=== PATIENT | male | born 1980 | race Caucasian/White ===

== ENCOUNTER 2020-03-09 10:54 | Day surgery (SDC) | payer BC, OTHER ==
[~2020-03-09] VITALS: Ht 188 cm; Wt 108.9 kg
[~2020-03-09 10:54] MED LIST: ADVIL200 M3 PO; ASA81BEC PO; LIPITOR10 MG PO; VENTOLIN HFA INH8 GM INH
[2020-03-09 12:02] VITALS: BP 115/73
[2020-03-09] MEDS ORDERED: NORCO 5-325 TA1 EAC1 PO (14:30)
[2020-03-09 14:38] VITALS: BP 115/73
--- NOTE | 2020-03-12 17:07 | PATH ---
[facility] [address] [place] [address] PATHOLOGY RPT PROCEDURE Name: KIMBERLY HYATT Room #: [place] [facility] [place].#: [id number] Admission: 03/09/20 Date of : 82 Discharge: 03/09/20 Report #: [id number] Path Case #: [id number] [facility] Accession Number: [id number] . 01 Material submitted: . PART A: scrotum - SCROTAL MASS 1.5CM PART B: face - RIGHT FACE-CHEEK MASS 1.0CM. Modifiers: right . 01 Clinical history: . Excision facial skin ca . 02 Diagnosis: A. Scrotal mass 1.5 cm, excision: - Mature keratinous cyst. - Cholesterol clefts along with reparative giant cell reaction, compatible with reaction to ruptured cyst. - Completely excised. . B. Right face/cheek mass, excision: - Mature keratinous cyst. - Completely excised. (IUV/db; 03/12/2020) LBQ 03/12/2020 1513 Local . 02 Electronically signed: . Dia Hernandez MD, Pathologist NPI- [id number] . 01 Gross description: . A. Received in formalin labeled "Kimberly Hyatt, scrotal mass 1.5 cm" is an intact cooper-white cystic structure measuring 1.4 x 1.3 x 0.8 cm. The external surface is inked entirely black. The specimen is sectioned to reveal that the cyst contains cooper-yellow grumous material. The specimen is entirely submitted in A1. . B. Received in formalin labeled "Kimberly Hyatt, right face/right cheek mass" is an intact cooper-white cystic structure with attached skin, measuring 1.5 x 1.2 x 1.0 cm. The skin measures 1.6 x 0.5 x 0.2 cm. The external surface is inked entirely black. The specimen is sectioned to reveal that the cyst contains cooper-white grumous material. The specimen is entirely submitted in B1. ([facility] [place]; 03/10/2020) [facility] 03/10/2020 1016 Local . 02 Pathologist provided ICD-10: L72.9, L72.0 . 02 [place] [address] PATHOLOGY RPT PROCEDURE Name: KIMBERLY HYATT Room #: [place] [facility] [place].R.#: [id number] Admission: 03/09/20 Date of : 82 Discharge: 03/09/20 Report #: [id number] Path Case #: [id number] Specimen Comment: A courtesy copy of this report has been sent to [phone] Specimen Comment: [phone] Specimen Comment: Report sent to / DR DEL CASTILLO Performed at: [address], [place], [place] [id number] MD Obdulio Villa MD Phone: [phone] Performed at: [address] [facility] [id number] MD Dia Hernandez MD Phone: [phone]
--- NOTE | 2020-03-21 08:43 | O ---
[facility] [place] [address] OPERATIVE REPORT Name: KIMBERLY SHEFFIELD Room #: DEP [facility]..#: [id number] Admission: 03/09/20 Attend Phys: Heriberto Estes MD Discharge: 03/09/20 Date of : 82 Report #: [id number] THIS REPORT FOR: cc: AVNI DEL CASTILLO MD, AVNI Estes,Heriberto Bertrand MD ~ CC: AVNI Estes DATE OF SERVICE: 03/09/[address] Avni Del Castillo. PREOPERATIVE DIAGNOSES: Right scrotal mass measuring 1.5 cm and a right cheek mass measuring 1.2 cm. POSTOPERATIVE DIAGNOSES: Right scrotal mass measuring 1.5 cm and a right cheek mass measuring 1.2 cm. PROCEDURE: Excision of a right scrotal mass measuring 1.5 cm and a right cheek lesion measuring 1.2 cm. SURGEON: Heriberto Estes MD ANESTHESIA: Local IV sedation. DESCRIPTION OF PROCEDURE: The patient was brought to the operating room and placed on operative table in the supine position. The scrotum was then prepped and draped in a sterile fashion. Skin and subcutaneous tissue were then infiltrated with 1% Xylocaine plain and 0.5% Marcaine plain. A skin incision was performed over the scrotal mass using #15 scalpel blade. Hemostasis obtained using electrocautery. Dissection was carried down through subcutaneous tissue to this mass, which was identified, dissected free, excised and sent to pathology. The meticulous hemostasis was obtained in the area using the electrocautery. Skin was then closed with 2 interrupted horizontal mattress 4-0 subcuticular sutures and then dressed with Dermabond. Attention was then turned to the right cheek lesion. That area was prepped and draped in a sterile fashion. Once again, skin and subcutaneous tissue around this mass was infiltrated with 0.5% Marcaine and 1% Xylocaine with epinephrine. Elliptical skin incision was performed over the mass using #15 scalpel blade. Hemostasis obtained using electrocautery. Dissection was carried down through subcutaneous tissue around this mass using the Metzenbaum scissors and electrocautery. A 1.2 cm mass was completely excised and sent to pathology. The skin was then closed using a running 4-0 subcuticular Vicryl stitch and the wound then dressed with Dermabond. The patient was then awakened from the IV sedation, taken to [address] [address] OPERATIVE REPORT Name: KIMBERLY SHEFFIELD SID Room #: DEP [facility].#: [id number] Admission: 03/09/20 Attend Phys: Heriberto Estes MD Discharge: 03/09/20 Date of : 82 Report #: [id number] recovery room awake, alert and in good condition. Estimated blood loss was approximately 5 mL and the patient tolerated procedure well. All sponge, lap and instrument counts correct x 2. <ELECTRONICALLY SIGNED> By: Heriberto Estes MD 03/21/20 0843 1419 1540 Heriberto Estes MD /nt
== END 2020-03-09 15:10 | disposition home or self-care (01) ==
LOC: OR 10:54 → TBA 10:54 → OR 15:10
PROVIDERS: ATTEND Surgery
DX: L72.3 Sebaceous cyst (principal); N50.89 Other specified disorders of the male genital organs; R22.0 Localized swelling, mass and lump, head; K21.9 Gastro-esophageal reflux disease without esophagitis; E78.5 Hyperlipidemia, unspecified; J45.909 Unspecified asthma, uncomplicated; F17.210 Nicotine dependence, cigarettes, uncomplicated; Z98.890 Other specified postprocedural states; Z79.899 Other long term (current) drug therapy; Z87.442 Personal history of urinary calculi; Z85.47 Personal history of malignant neoplasm of testis; Z88.0 Allergy status to penicillin; Z88.8 Allergy status to other drugs, medicaments and biological substances; Z11.59 Encounter for screening for other viral diseases
CPT/HCPCS: 50010; 50101; 50386; 50403; 54118; 56528; 62110; 62850; 70005